=== PATIENT | female | born 1965 | race Caucasian/White ===

== ENCOUNTER 2018-05-28 11:29 | Day surgery (SDC) | payer BC ==
[2018-05-28] MEDS ORDERED: DIPRIVAN 200 MG/20 ML IV ONE (11:30)
[2018-05-28] MEDS ORDERED: Depo-Medrol 40 MG/ML IM ONE (11:30)
[2018-05-28] MEDS ORDERED: Marcaine 0.5% SDV 10 ML IJ ONE (11:30)
[2018-05-28] MEDS ORDERED: Lactated Ringers 1,000 ML IV ONE (15:00)
[2018-05-28] MEDS ORDERED: TORAdol 30 mg Injection ONE (15:49)
--- NOTE | 2018-05-28 16:03 | XRAY ---
Indication: Bilateral SI joint injection. Intraoperative fluoroscopy was provided for 34 seconds. 3 digital spot images submitted for interpretation demonstrates posterior spinal needle tip projecting over the inferior right SI joint. Correlate with intraoperative findings/report.
--- NOTE | 2018-05-28 16:05 | XRAY ---
34 seconds fluoroscopy time in surgery for bilateral S-I joints injections.
== END 2018-05-28 15:20 | disposition home or self-care (01) ==
LOC: SDC-PAIN 11:29
PROVIDERS: ATTEND Psychiatry & Neurology Pain Medicine
DX: M46.1 Sacroiliitis, not elsewhere classified (principal); Z79.899 Other long term (current) drug therapy
CPT/HCPCS: 27096; 72020; 77002; J1030; J1885; J2704; G0260

== ENCOUNTER 2019-01-21 11:34 | Day surgery (SDC) | payer BC ==
[2019-01-21] MEDS ORDERED: Decadron 4 MG INJ IV ONE (11:35)
[2019-01-21] MEDS ORDERED: LIDOCAINE HCL 2% 100 MG/5 ML IJ ONE (11:35)
[2019-01-21] MEDS ORDERED: Ketamine HCl 50 MG/ML ONE (13:06)
[2019-01-21] MEDS ORDERED: DIPRIVAN 200 MG/20 ML IV ONE (13:06)
[2019-01-21] MEDS ORDERED: Lactated Ringers 1,000 ML IV ONE (13:58)
--- NOTE | 2019-01-21 16:26 | XRAY ---
16 seconds fluoroscopy time in surgery for left C4-C5 MBB.
--- NOTE | 2019-01-22 06:54 | XRAY ---
Indication: Left C3-C5 MBB. Intraoperative fluoroscopy was provided for 16 seconds. PA and lateral digital spot films reveal spinal needle tips projected over the expected course of the left C3-C5 nerve roots. Correlate with intraoperative findings/report.
== END 2019-01-21 13:37 | disposition home or self-care (01) ==
LOC: SDC-PAIN 11:34
PROVIDERS: ATTEND Psychiatry & Neurology Pain Medicine
DX: M47.812 Spondylosis without myelopathy or radiculopathy, cervical region (principal); K21.9 Gastro-esophageal reflux disease without esophagitis; R00.1 Bradycardia, unspecified; Z79.899 Other long term (current) drug therapy
CPT/HCPCS: 64490; 64491; 72020; 77002; J1100; J2704

== ENCOUNTER → 2019-03-18 | Day surgery (SDC) | payer BC | END | disposition home or self-care (01) | LOC: SDC-PAIN 12:31 | PROVIDERS: ATTEND Psychiatry & Neurology Pain Medicine | DX: Z53.8 Procedure and treatment not carried out for other reasons (principal) ==